=== PATIENT | female | born 1990 | race Caucasian/White ===

== ENCOUNTER 2019-04-20 13:18 | Emergency (ER) | payer SELFPAY ==
[~2019-04-20] VITALS: Ht 149.9 cm; Wt 54.5 kg
[2019-04-20 13:27] VITALS: BP 120/68; TEMP 98.2
[2019-04-20] MEDS ORDERED: PRENATAL TABLET PO (14:41)
[2019-04-20] MEDS ORDERED: PHENERGAN 25 TA25 MG PO (15:02)
--- NOTE | 2019-04-20 15:20 | NUR ---
ANA cole responded to the ED for a long term care social worker consult due to the patient needing resources. ANA cole met with the patient. The patient moved here from [place] approximately 9 months ago. The patient is (unsure how far along) and has three other children at home and lives with her fiance. The patient is currently unemployed and is self-pay. The patient reports she has tried to apply for Medicaid several times but has been denied. ANA cole contacted Tammy financial counselor to meet with the patient. ANA cole provided and discussed the resources on the [facility] Resource Guide with the patient. ANA cole collaborated the above information with the patient's nurse.
[2019-04-20 15:25] VITALS: PULSE 86
--- NOTE | 2019-04-25 10:21 | NUR ---
LICENSING SPECIALIST student contacted the patient to provide the phone [facility] to the [facility] . There are no additional needs at this time.
== END 2019-04-20 15:30 | disposition home or self-care (01) ==
LOC: COL.ER 13:18
DX: J10.1 Influenza due to other identified influenza virus with other respiratory manifestations (principal)

== ENCOUNTER 2019-08-28 02:22 | Inpatient (IN) | payer MEDICAID ==
[~2019-08-28] VITALS: Ht 149.9 cm; Wt 54.1 kg
[2019-08-28] VITALS (38 sets, daily range): BP systolic 102–137; BP diastolic 56–83; PULSE 58–106; TEMP 97.5–98.2
--- NOTE | 2019-08-28 02:00 | NUR ---
PT TO UNIT VIA WHEELCHAIR WITH SIGNIFICANT OTHER WITH COMPLAINTS OF CONTRACTIONS. TO ROOM, ASSISTED INTO GOWN, SVE PERFORMED, EFMX2 APPLIED, VS OBTAINED.
[~2019-08-28 02:22] MED LIST: PHENERGAN 25 TA25 MG PO; PRENATAL TABLET PO
--- NOTE | 2019-08-28 03:00 | NUR ---
PT REQUESTING EPIDURAL, WILL NOTIFY Dakota GARCIA CRNA.
[2019-08-28 03:22] LABS: ALBUMIN 3.6 gm/dL (3.5-5.0); BASO % 0.3 % (0.0-2.0); BILIRUBIN,TOTAL 0.2 mg/dL (0.0-1.0); CALCIUM 10.1 mg/dL (8.4-10.2); CREATININE, serum 0.56 (0.52-1.25); EOS # 0.1 (0.0-0.7); EOS % 0.4 % (0-4.0); GRAN # 6.2 (1.4-6.5); GRAN % 53.9 % (42.2-75.2); HEMOGLOBIN 10.2 g/dl (12.5-16.0); LYMPH % 34.5 % (20.0-51.0); MEAN CELL VOLUME 81 fl (80.0-100.0); MEAN CORPUSCULAR HEMOGLOBIN 27 pg (27.0-31.0); MEAN CORPUSCULAR HGB CONC 33 g/dl (33.0-37.0); MEAN PLATELET VOLUME 11.4 fl (7.4-10.4); MONO # 1.2 (0.1-0.6); MONO % 10.5 % (1.7-9.3); PLATELET COUNT 354 K/mm3 (130-400); POTASSIUM 3.8 mmol/L (3.4-5.0); RED BLOOD COUNT 3.85 M/mm3 (4.10-5.30); REDCELL DISTRIBUTION WIDTH-CV 16.5 % (11.5-14.5)
[2019-08-28 03:26] LABS: HEMATOCRIT 31.3 % (37.0-47.0)
--- NOTE | 2019-08-28 03:31 | NUR ---
0331- SVE OF /-2. Dakota GARCIA CRNA IN ROOM FOR EPIDURAL PLACEMENT. PT SITTING UP AT BEDSIDE FOR EPIDURAL PLACEMENT. 0340- TEST DOSE GIVEN BY Dakota GARCIA CRNA, PT TOLERATED WELL. 0345- PT REPOSTIONED INTO SEMIFOWLERS FOLLOWING EPIDURAL. -
[2019-08-28 03:47] LABS: TRICYCLIC ANTIDEPRESS URINE NEGATIVE
[2019-08-28] MEDS ORDERED: VALTREX 50500 MG/TAB PO (05:22)
[2019-08-28] MEDS ORDERED: FLINTSTONES1 CTB PO (05:22)
--- NOTE | 2019-08-28 06:20 | NUR ---
0620- BEDSIDE REPORT GIVEN TO ZAN COLINDRES.
--- NOTE | 2019-08-28 07:24 | NUR ---
0710- PATIENT OFF EFM- EMESIS
--- NOTE | 2019-08-28 09:44 | NUR ---
BY DR KILPATRICK. PLACENTA SPON DELIVERED AT 0946. TO MOTHERS CHEST. IN CARE OF ZAN COLEMAN. PERINEUM INTACT. OXYTOCIN 333 MLS/ HR. FUNDAL MASSAGE PROVIDED. EMILIO CARE PROVIDED. ICE PACK TO PERINEUM. RECOVERY STARTED AT 1000.
--- NOTE | 2019-08-28 16:29 | NUR ---
SW received a referral from OB to speak with patient due to marijuana use during and inadaquate care during . SW met with patient in patients room with patients cal (child's father) present. Patient gave SW permission to discuss information in front of cal. Patient reports that they moved from [place] to [place] approximately 1 year ago because cost of living was cheaper. Patient reports that she has 3 other children ages 6,4,2, all boys that live with her and her cal. 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 Patient rpeorts having difficulty with getting insurance and that she was denied 3 times. patient denied having any supports except for her cal and that she did not know how to obtain services. Patient reprots that she ended up going to [place] where an advocate in the [facility] helped her obtain insurance. patient reported missing appointments because neither she or her zoraida' drive and so transportation was difficult. When asked about insurance for the baby and if educated on how to obtain it, patient indicated that she thought that her daughter would automatically enrolled into ensurance after she was born. Patient reports being nauseous during her , and that her PCP in [place] had previously priscribed her edibles. Patient reported that she was informed that she had begun losing weight from being so sick so she took edibles again during the last month in order to be able to eat and sleep, and decrease her sickness. Patient denied a hsitory of drug use, except during her pregnancies when she consumed the edibles. Sw informed patient that CPs report would have to be filed protocal. Patient was provided with information packet for resources.
[2019-08-29 07:30] VITALS: BP 110/75; PULSE 84; TEMP 98
--- NOTE | 2019-08-29 09:05 | NUR ---
SOCIAL WORK MEETING WITH PATIENT AND AT THIS TIME
[2019-08-29] MEDS ORDERED: IBU800 M1 PO (12:13)
--- NOTE | 2019-08-29 16:39 | NUR ---
Aircraft Engine Dismantler followed up with patient and father of , Tim. Patient reports they moved from [place] to [place] as she went to school at [place] as a child when her step-father was stationed at [facility]. Patient reports the motivation behind moving is cheaper cost of living. Patient states from [place], they decided to move to [place] to be in a bigger town. SW provided [facility] Resource Guide to patient who advised she has not yet set up [place] but intends to. Tim reports he also [facility] but is going to reschedule. Appointment is for assistance with rent as patient and Tim received an eviction notice after they missed rent for August. Patient states August is the only month they owe on. Patient reports that transportation has been a barrier for them but that they are planning on working with [facility] and [employer] to assist with fixing their car. Patient has three children at home Ayush, Bryce, and Randall (Ages 6, 4, ad 2). Patient reports her sister, Aleyda is at home with the kids right now. Patient states her mother but the rest of her family is located in [place]. Tim reports he does not have any family support. Patient advised that she has all the supplies she needs for her baby as she had a baby shower via [employer]. SW followed up on Marijuana use and patient again advised that she took edibles to help her appetite. Patient states she was prescribed edibles from an alternative medicine doctor in [place]. RUTH contacted CPS worker, Ms. Lindsay to follow up on report made over the weekend. Ms. Lindsay advised her coworkers Andrew and Crystal would respond to the hospital prior to discharge. RUTH arrived at patient's room where Adiel were meeting with patient. Andrew advised he would be out to visit patient's home this afternoon to observe 's living and sleeping arrangements. Andrew advised he will also bring additional formula as patient cannot breastfeed at this time. Patient expressed to Andrew that she took edibles as they were prescribed to her by a physician in [place]. Adiel reminded patient that in [place], Marijuana is still considered an illegal substance. Patient and Tim verbalized understanding. Patient, Tim and infant discharged from hospital and will have follow up from Child Protective Services workers, Adiel. RUTH collaborated with RNMartin about the above information.
== END 2019-08-29 14:15 | disposition home or self-care (01) | DRG 806 ==
LOC: LAC 02:22 → LDRO 02:22 → OB 02:51 → LDR 02:51 → OB 12:01 → LDR 08-29 06:09 → OB 08-29 14:15
PROVIDERS: ADMIT Obstetrics & Gynecology
PROC: 10E0XZZ Delivery of Products of Conception, External Approach (ICD-10-PCS; principal; 2019-08-28)
DX: O48.0 Post-term pregnancy (principal); O98.52 Other viral diseases complicating childbirth; Z37.0 Single live birth; O99.324 Drug use complicating childbirth; O99.344 Other mental disorders complicating childbirth; B00.9 Herpesviral infection, unspecified; F32.9 Major depressive disorder, single episode, unspecified; O99.02 Anemia complicating childbirth; E55.9 Vitamin D deficiency, unspecified; Z3A.40 40 weeks gestation of pregnancy; D50.9 Iron deficiency anemia, unspecified
CPT/HCPCS: J2590; J7120

== ENCOUNTER 2022-07-18 12:23 | Emergency (ER) | payer MEDICAID ==
[~2022-07-18] VITALS: Ht 149.9 cm; Wt 42.3 kg
[~2022-07-18 12:23] MED LIST changes: +FLINTSTONES1 CTB PO; +IBU800 M1 PO; +VALTREX 50500 MG/TAB PO
[2022-07-18 12:30] VITALS: TEMP 97.7
[2022-07-18 13:30] LABS: BASO % 0.5 % (0.0-2.0); EOS % 0.2 % (0.0-4.0); GRAN # 5.5 K/mm3 (1.4-6.5); GRAN % 67.3 % (42.2-75.2); LYMPH # 1.9 K/mm3 (1.2-3.4); LYMPH % 23.3 % (20.0-51.0); MEAN CELL VOLUME 75 fl (80.0-100.0); MEAN CORPUSCULAR HGB CONC 33 g/dl (33.0-37.0); MEAN PLATELET VOLUME 9.6 fl (7.4-10.4); MONO # 0.7 K/mm3 (0.1-0.6); MONO % 8.5 % (1.7-9.3); PLATELET COUNT 431 K/mm3 (130-400); RED BLOOD COUNT 3.82 M/mm3 (4.10-5.30); REDCELL DISTRIBUTION WIDTH-CV 24.9 % (11.5-14.5)
[2022-07-18 13:31] LABS: HEMATOCRIT 28.7 % (37.0-47.0); HEMOGLOBIN 9.4 g/dl (12.5-16.0); MEAN CORPUSCULAR HEMOGLOBIN 25 pg (27-31)
[2022-07-18 13:41] LABS: ALBUMIN 3.7 gm/dL (3.5-5.0); BILIRUBIN,TOTAL 0.4 mg/dL (0.2-1.2); CALCIUM 9.1 mg/dL (8.4-10.2); CREATININE, serum 0.71 mg/dL (0.57-1.11); POTASSIUM 3.4 mmol/L (3.5-4.5); TOTAL PROTEIN 6.9 gm/dL (6.2-8.1)
[2022-07-18 14:59] LABS: COLLECTION METHOD CLEAN CATCH
[2022-07-18 15:05] LABS: PH 7.5 (5.0-8.5); URINE APPEARANCE Clear (CLEAR/HAZY); URINE BLOOD Negative (NEGATIVE); URINE COLOR Yellow (YELLOW); URINE GLUCOSE Negative (NEGATIVE); URINE KETONE Negative (NEGATIVE); URINE NITRATE Negative (NEGATIVE); URINE PROTEIN(semi-quant) Negative (NEGATIVE); URINE UROBILINOGEN 0.2 E.U/dL (0.2-1.0)
[2022-07-18 15:07] LABS: MUCOUS Present (NOT PRESENT); SQUAMOUS EPITHELIAL 0-2 /hpf (0-10); URINE BACTERIA Rare /hpf (NONE SEEN)
[2022-07-18 16:25] VITALS: BP 112/66; PULSE 74
== END 2022-07-18 16:24 | disposition home or self-care (01) ==
LOC: COL.ER 12:23
PROVIDERS: Nurse Practitioner
DX: O21.9 Vomiting of pregnancy, unspecified (principal); Z3A.13 13 weeks gestation of pregnancy; Z28.310 Unvaccinated for COVID-19
CPT/HCPCS: J2550; J7030